=== PATIENT | female | born 1955 | race African-American/Black ===

== ENCOUNTER 2018-05-25 19:21 | Emergency (ER) | payer OTHER ==
[~2018-05-25] VITALS: Ht 170.2 cm; Wt 97.5 kg
[2018-05-25 20:04] LABS: Basophils # (auto) 0 uL; Basophils % (auto) 0.4 % (0.0-2.0); Eosinophils # (auto) 0.2 uL; Eosinophils % (auto) 2.8 % (0.0-7.0); Hematocrit 33.7 % (36.0-46.0); Lymphocytes # (auto) 1.9 uL; Mean Corpuscular Hgb Conc. 32.6 g/dL (32.0-36.0); Monocytes # (auto) 0.7 uL; Neutrophils # (auto) 4.9 uL; Neutrophils % (auto) 63.8 % (37.0-80.0); Nucleated Red Blood Cells % 0.5 %; Platelet Count (auto) 180 10^3/uL (140-450); Red Blood Cells 4.06 10^6/uL (4.0-5.20); Red Cell Distribution Width 16.4 % (11.8-14.3); White Blood Cell 7.7 10^3/uL (4.4-10.8)
[2018-05-25 20:14] LABS: Albumin 3.3 g/dL (3.4-5.0); Calcium 8.6 mg/dL (8.5-10.1); Magnesium 1.8 mg/dL (1.6-2.6); Potassium 3.5 mmol/L (3.5-5.1)
[2018-05-25 20:18] LABS: BUN/Creatinine Ratio 12.1; Bilirubin, Total 1.3 mg/dL (0.2-1.0); Total Protein 7.3 g/dL (6.4-8.2)
[2018-05-25] MEDS ORDERED: ALBUTEROL SULF 2.5 MG/0.5ML(0.5%) NEB SOLN NEB ONE (23:00)
[2018-05-25] MEDS ORDERED: IPRATROPIUM BROM 0.5 MG/2.5ML INH SOL NEB ONE (23:00)
[2018-05-25 23:18] LABS: INR 3.24 (0.9-1.15); Partial Thromboplastin Time 37.3 sec (23.78-33.04); Prothrombin Time 32.4 sec (9.27-12.13)
[2018-05-26 03:15] VITALS: BP 142/72
[2018-05-26] MEDS ORDERED: FUROSEMIDE 20 MG/2 ML VIAL IV ONE (03:45)
== END 2018-05-26 05:05 | disposition home or self-care (01) ==
LOC: EDBD 19:21 → ER 19:21
DX: I50.9 Heart failure, unspecified (principal); D68.9 Coagulation defect, unspecified; E11.9 Type 2 diabetes mellitus without complications; R53.1 Weakness; Z45.018 Encounter for adjustment and management of other part of cardiac pacemaker
CPT/HCPCS: 36415; 71046; 80053; 83735; 83880; 84484; 85025; 85379; 85610; 85730; 93005; 94640; 94761; 96374; 99284; J1940; J7611; J7644

== ENCOUNTER 2022-01-22 06:56 | Inpatient (IN) | payer MEDICARE, OTHER ==
[~2022-01-22] VITALS: Ht 170.2 cm; Wt 104.1 kg
[2022-01-22] VITALS (41 sets, daily range): BP systolic 77–150; BP diastolic 41–80
[2022-01-22] MEDS ORDERED: LORazepam 2MG/ML-1ML VIAL ONE (07:05)
[2022-01-22] MEDS ORDERED: LORazepam 2MG/ML-1ML VIAL IV ONE (07:06)
[2022-01-22] MEDS ORDERED: ETOMIDATE (2MG/ML) 20ML VIAL IV ONE ×2 (07:18→07:30)
[2022-01-22] MEDS ORDERED: SUCCINYLCHOLINE CHLORIDE 20 MG/ML 10ML VIAL IV ONE ×2 (07:19→07:30)
[2022-01-22] MEDS ORDERED: SODIUM CHLORIDE 0.9% 1,000 ML IV ONE ×2 (07:30)
[2022-01-22] MEDS ORDERED: cefTRIAXone 1GM/50ML D5W 50 ML IV ONE (07:30)
[2022-01-22] MEDS ORDERED: MIDAZOLAM DRIP 50 mg/50mL 50 ML IV ONE (07:37)
[2022-01-22] MEDS ORDERED: NOREPINEPHRINE 8 MG/250ML KIT 250 ML IV ONE (07:37)
[2022-01-22] MEDS: MIDAZOLAM DRIP 50 mg/50mL 50 ML IV SCH ×2 (07:42→10:00)
[2022-01-22] MEDS: NOREPINEPHRINE 8 MG/250ML KIT 250 ML IV SCH (08:00)
[2022-01-22 08:13] LABS: Basophils # (auto) 0.1 10 ^3/uL (0-0.2); Eosinophils # (auto) 0.2 10 ^3/uL (0-0.8); Lymphocytes # (auto) 1.5 10 ^3/uL (0.4-5.4); Monocytes # (auto) 0.4 10 ^3/uL (0-1.3); Neutrophils # (auto) 5.2 10 ^3/uL (1.6-8.6); Nucleated Red Blood Cells % 0.1 %
[2022-01-22 08:15] LABS: Basophils % (auto) 0.9 % (0.0-2.0); Hematocrit 37.7 % (36.0-46.0); Hemoglobin 12.6 g/dL (12.2-16.2); Lymphocytes % (auto) 20.1 % (10.0-50.0); Mean Corpuscular Hgb Conc. 33.5 g/dL (32.0-36.0); Mean Corpuscular Volume 80.7 fL (80.0-100.0); Monocytes % (auto) 5.6 % (0.0-12.0); Neutrophils % (auto) 70.4 % (37.0-80.0); Red Blood Cells 4.67 10^6/uL (4.0-5.20); Red Cell Distribution Width 14.7 % (11.8-14.3); White Blood Cell 7.3 10^3/uL (4.4-10.8)
[2022-01-22 08:36] LABS: INR 2.25 (0.9-1.15); Partial Thromboplastin Time 34.2 sec (24.6-33.4)
[2022-01-22 08:46] LABS: Albumin 3.4 g/dL (3.4-5.0); Calcium 9.6 mg/dL (8.5-10.1); Potassium 5.4 mmol/L (3.5-5.1)
[2022-01-22 08:49] LABS: BUN/Creatinine Ratio 10.7; Bilirubin, Total 0.6 mg/dL (0.2-1.0); Total Protein 6.7 g/dL (6.4-8.2)
[2022-01-22] MEDS: fentaNYL Drip 2500mCg/250mlNS 250 ML IV SCH (09:17)
[2022-01-22 10:24] LABS: Urine Bacteria FEW /hpf (None Seen); Urine Blood 3+ /uL (Negative); Urine Specific Gravity 1.014 (1.001-1.035); Urine WBC 2 /hpf (0 - 5)
[2022-01-22] MEDS ORDERED: NITROGLYCERIN 0.4 MG SL TAB SL PRN (10:30)
[2022-01-22] MEDS ORDERED: MORPHINE SULFATE INJ 2 MG/ml SYRG IV PRN (10:30)
[2022-01-22] MEDS ORDERED: DEXTROSE (50%) 50ML SYRG IV PRN (10:30)
[2022-01-22] MEDS ORDERED: InsuLIN REG 1unit/0.01ml Soln (100units/ml) IV ONE (11:15)
[2022-01-22] MEDS ORDERED: SODIUM BICARBONATE 8.4% INJ 50ML SYRINGE IV ONE (11:15)
[2022-01-22] MEDS ORDERED: DEXTROSE (50%) 50ML SYRG IV ONE (11:15)
[2022-01-22] MEDS ORDERED: FUROSEMIDE 20 MG/2 ML VIAL IV ONE (11:15)
[2022-01-22] MEDS ORDERED: SODIUM CHLORIDE 0.9% 1,000 ML IV SCH (11:30)
[2022-01-22 11:47] LABS: Cholesterol 122 mg/dL (< 200)
[2022-01-22 11:50] LABS: HDL Cholesterol 59 mg/dL (40-59); LDL Cholesterol 62 mg/dL (< 100); Triglycerides 63 mg/dL (< 150)
[2022-01-22] MEDS: ACCU-CHEK COMFORT CURVE STRIP VI SCH (12:00)
[2022-01-22] MEDS: InsuLIN REG 1unit/0.01ml Soln (100units/ml) SC SCH (12:00)
[2022-01-22 12:27] LABS: Lactic Acid w/Reflex 11.9 mmol/L (0.4-2.0)
[2022-01-22] MEDS ORDERED: PIPERACILLIN-TAZOB 3.375GM 100 ML IV ONE (12:30)
[2022-01-22 13:20] LABS: Amphetamine Screen, Urine NEGATIVE (NEGATIVE); Barbiturate Scree,Urine NEGATIVE (NEGATIVE); Benzodiazephine Screen, Urine POSITIVE (NEGATIVE); Cannabinoid Screen, Urine NEGATIVE (NEGATIVE); Cocaine Screen, Urine NEGATIVE (NEGATIVE); Opiate Scree,Urine NEGATIVE (NEGATIVE); Phencyclidine Screen, Urine NEGATIVE (NEGATIVE)
[2022-01-22 14:02] LABS: BUN/Creatinine Ratio 12.3; Calcium 8.8 mg/dL (8.5-10.1)
[2022-01-22] MEDS ORDERED: AMIODARONE 450mg/250ml AE 250 ML IV SCH (16:00)
[2022-01-22] MEDS ORDERED: AMIODARONE HCL 150 MG in D5W 5% 100 ML IV ONE (16:00)
[2022-01-22] MEDS ORDERED: WARFARIN SODIUM 5 MG TAB PO ONE (21:00)
[2022-01-22] MEDS: PIPERACILLIN-TAZOB 3.375GM 100 ML IV SCH ×2 (21:00→21:43)
[2022-01-22] MEDS ORDERED: PHENYTOIN IV DILANTIN 1,000 MG in SODIUM CHL 0.9% 250 ML IV ONE (21:00)
[2022-01-22] MEDS ORDERED: LORazepam 2MG/ML-1ML VIAL IV PRN (21:00)
[2022-01-22] MEDS: PHENYTOIN SODIUM 50 MG/ML 2ML VIAL IV SCH (22:00)
[2022-01-22] MEDS: MILRINONE 20MG/100ML 100 ML IV SCH (23:06)
[2022-01-23] VITALS (100 sets, daily range): BP systolic 84–127; BP diastolic 38–69
[2022-01-23 04:39] LABS: Basophils # (auto) 0.1 10 ^3/uL (0-0.2); Eosinophils # (auto) 0.1 10 ^3/uL (0-0.8); Lymphocytes # (auto) 1.9 10 ^3/uL (0.4-5.4); Monocytes # (auto) 1.2 10 ^3/uL (0-1.3); Nucleated Red Blood Cells % 0.3 %
[2022-01-23 04:43] LABS: Basophils % (auto) 0.7 % (0.0-2.0); Hematocrit 34.9 % (36.0-46.0); Lymphocytes % (auto) 16.6 % (10.0-50.0); Mean Corpuscular Hemoglobin 26.8 pg (28.0-32.0); Mean Corpuscular Hgb Conc. 34.5 g/dL (32.0-36.0); Mean Corpuscular Volume 77.8 fL (80.0-100.0); Monocytes % (auto) 9.8 % (0.0-12.0); Neutrophils # (auto) 8.4 10 ^3/uL (1.6-8.6); Neutrophils % (auto) 71.9 % (37.0-80.0); Red Blood Cells 4.48 10^6/uL (4.0-5.20); Red Cell Distribution Width 14.7 % (11.8-14.3); White Blood Cell 11.7 10^3/uL (4.4-10.8)
[2022-01-23 04:50] LABS: INR 2.49 (0.9-1.15)
[2022-01-23 04:58] LABS: Potassium 4.1 mmol/L (3.5-5.1)
[2022-01-23] MEDS: MIDAZOLAM DRIP 50 mg/50mL 50 ML IV SCH ×4 (05:00→16:45)
[2022-01-23] MEDS: PIPERACILLIN-TAZOB 3.375GM 100 ML IV SCH ×3 (05:00→22:14)
[2022-01-23] MEDS: MILRINONE 20MG/100ML 100 ML IV SCH ×4 (05:00→21:30)
[2022-01-23 05:05] LABS: Albumin 3.2 g/dL (3.4-5.0); BUN/Creatinine Ratio 12.3; Bilirubin, Total 1.2 mg/dL (0.2-1.0); Calcium 8.6 mg/dL (8.5-10.1); Total Protein 6.1 g/dL (6.4-8.2)
[2022-01-23] MEDS: ACCU-CHEK COMFORT CURVE STRIP VI SCH ×4 (06:00→18:29)
[2022-01-23] MEDS: InsuLIN REG 1unit/0.01ml Soln (100units/ml) SC SCH ×4 (06:00→18:00)
[2022-01-23] MEDS: PHENYTOIN SODIUM 50 MG/ML 2ML VIAL IV SCH ×3 (06:00→21:30)
[2022-01-23] MEDS: NOREPINEPHRINE 8 MG/250ML KIT 250 ML IV SCH ×2 (07:54→13:18)
[2022-01-23] MEDS: AMIODARONE 450mg/250ml AE 250 ML IV SCH ×2 (08:15→13:00)
[2022-01-23] MEDS ORDERED: ENOXAPARIN SOD 40 MG/0.4 ML SYRINGE SC SCH (10:00)
[2022-01-23] MEDS ORDERED: LIDOCAINE 1% (LOCAL ANESTH.) PF 5ml SDV ID ONE (13:00)
[2022-01-23] MEDS: fentaNYL Drip 2500mCg/250mlNS 250 ML IV SCH (13:19)
[2022-01-23] MEDS ORDERED: WARFARIN SODIUM 1 MG TAB PO ONE (17:00)
[2022-01-23] MEDS: SODIUM CHLOR 0.9% PF (SALINE LOCK) 10ML VIAL/SYR IV SCH (22:14)
[2022-01-24] VITALS (101 sets, daily range): BP systolic 81–127; BP diastolic 38–72
[2022-01-24] MEDS: InsuLIN REG 1unit/0.01ml Soln (100units/ml) SC SCH ×4 (01:30→18:04)
[2022-01-24] MEDS: ACCU-CHEK COMFORT CURVE STRIP VI SCH ×4 (01:30→17:52)
[2022-01-24] MEDS: MILRINONE 20MG/100ML 100 ML IV SCH ×4 (03:25→20:49)
[2022-01-24] MEDS: AMIODARONE 450mg/250ml AE 250 ML IV SCH (04:00)
[2022-01-24 04:27] LABS: Basophils # (auto) 0.1 10 ^3/uL (0-0.2); Basophils % (auto) 0.6 % (0.0-2.0); Eosinophils # (auto) 0 10 ^3/uL (0-0.8); Eosinophils % (auto) 0.2 % (0.0-7.0); Hematocrit 31.9 % (36.0-46.0); Hemoglobin 11.1 g/dL (12.2-16.2); Lymphocytes # (auto) 1.6 10 ^3/uL (0.4-5.4); Lymphocytes % (auto) 11.9 % (10.0-50.0); Mean Corpuscular Hemoglobin 27.4 pg (28.0-32.0); Mean Corpuscular Hgb Conc. 34.9 g/dL (32.0-36.0); Mean Corpuscular Volume 78.4 fL (80.0-100.0); Monocytes # (auto) 1.2 10 ^3/uL (0-1.3); Monocytes % (auto) 8.7 % (0.0-12.0); Neutrophils # (auto) 10.5 10 ^3/uL (1.6-8.6); Neutrophils % (auto) 78.6 % (37.0-80.0); Nucleated Red Blood Cells % 0.2 %; Red Blood Cells 4.07 10^6/uL (4.0-5.20); Red Cell Distribution Width 14.5 % (11.8-14.3); White Blood Cell 13.4 10^3/uL (4.4-10.8)
[2022-01-24 04:52] LABS: Albumin 2.8 g/dL (3.4-5.0); Calcium 8.3 mg/dL (8.5-10.1); Potassium 4.4 mmol/L (3.5-5.1)
[2022-01-24 04:55] LABS: BUN/Creatinine Ratio 11.2; Bilirubin, Total 0.9 mg/dL (0.2-1.0); Total Protein 5.6 g/dL (6.4-8.2)
[2022-01-24] MEDS: PHENYTOIN SODIUM 50 MG/ML 2ML VIAL IV SCH ×3 (06:04→22:19)
[2022-01-24 06:13] LABS: INR 5.53 (0.9-1.15)
[2022-01-24] MEDS: PIPERACILLIN-TAZOB 3.375GM 100 ML IV SCH ×3 (06:49→20:58)
[2022-01-24] MEDS: MIDAZOLAM DRIP 50 mg/50mL 50 ML IV SCH ×4 (08:57→20:50)
[2022-01-24] MEDS: NOREPINEPHRINE 8 MG/250ML KIT 250 ML IV SCH ×2 (08:58→15:48)
[2022-01-24] MEDS: fentaNYL Drip 2500mCg/250mlNS 250 ML IV SCH ×2 (09:15→13:39)
[2022-01-24] MEDS: SODIUM CHLOR 0.9% PF (SALINE LOCK) 10ML VIAL/SYR IV SCH ×2 (10:00→22:19)
[2022-01-24] MEDS ORDERED: PANTOPRAZOLE 40 MG/10 ML VIAL INJ IV ONE (10:30)
[2022-01-25] VITALS (100 sets, daily range): BP systolic 77–140; BP diastolic 35–65
[2022-01-25] MEDS: ACCU-CHEK COMFORT CURVE STRIP VI SCH ×5 (00:09→23:40)
[2022-01-25] MEDS: InsuLIN REG 1unit/0.01ml Soln (100units/ml) SC SCH ×5 (00:18→23:43)
[2022-01-25] MEDS: NOREPINEPHRINE 8 MG/250ML KIT 250 ML IV SCH ×2 (00:22→10:28)
[2022-01-25] MEDS: MIDAZOLAM DRIP 50 mg/50mL 50 ML IV SCH ×5 (00:23→21:04)
[2022-01-25 04:48] LABS: Basophils # (auto) 0.1 10 ^3/uL (0-0.2); Basophils % (auto) 0.6 % (0.0-2.0); Eosinophils # (auto) 0.1 10 ^3/uL (0-0.8); Eosinophils % (auto) 0.5 % (0.0-7.0); Hematocrit 30.6 % (36.0-46.0); Hemoglobin 10.6 g/dL (12.2-16.2); Lymphocytes # (auto) 1.4 10 ^3/uL (0.4-5.4); Lymphocytes % (auto) 10.4 % (10.0-50.0); Mean Corpuscular Hgb Conc. 34.7 g/dL (32.0-36.0); Mean Corpuscular Volume 77.8 fL (80.0-100.0); Monocytes # (auto) 1.2 10 ^3/uL (0-1.3); Monocytes % (auto) 8.7 % (0.0-12.0); Neutrophils # (auto) 10.7 10 ^3/uL (1.6-8.6); Neutrophils % (auto) 79.8 % (37.0-80.0); Nucleated Red Blood Cells % 0.1 %; Red Blood Cells 3.94 10^6/uL (4.0-5.20); Red Cell Distribution Width 14.5 % (11.8-14.3); White Blood Cell 13.4 10^3/uL (4.4-10.8)
[2022-01-25 04:59] LABS: Albumin 2.7 g/dL (3.4-5.0); Calcium 8.7 mg/dL (8.5-10.1); Potassium 4.2 mmol/L (3.5-5.1)
[2022-01-25 05:01] LABS: BUN/Creatinine Ratio 9.8
[2022-01-25 05:04] LABS: Bilirubin, Total 0.9 mg/dL (0.2-1.0); Total Protein 5.6 g/dL (6.4-8.2)
[2022-01-25 05:06] LABS: Partial Thromboplastin Time 55.8 sec (24.6-33.4)
[2022-01-25 05:10] LABS: INR 7.79 (0.9-1.15)
[2022-01-25] MEDS: AMIODARONE 450mg/250ml AE 250 ML IV SCH ×3 (05:19→20:05)
[2022-01-25] MEDS: MILRINONE 20MG/100ML 100 ML IV SCH ×3 (05:20→22:11)
[2022-01-25] MEDS: PIPERACILLIN-TAZOB 3.375GM 100 ML IV SCH ×3 (05:23→21:04)
[2022-01-25] MEDS: PHENYTOIN SODIUM 50 MG/ML 2ML VIAL IV SCH ×3 (06:09→22:11)
[2022-01-25] MEDS: PANTOPRAZOLE 40 MG/10 ML VIAL INJ IV SCH (10:26)
[2022-01-25] MEDS: SODIUM CHLOR 0.9% PF (SALINE LOCK) 10ML VIAL/SYR IV SCH ×2 (10:29→22:12)
[2022-01-26] VITALS (104 sets, daily range): BP systolic 87–141; BP diastolic 43–91
[2022-01-26] MEDS: MIDAZOLAM DRIP 50 mg/50mL 50 ML IV SCH ×4 (00:32→20:52)
[2022-01-26] MEDS: NOREPINEPHRINE 8 MG/250ML KIT 250 ML IV SCH (01:27)
[2022-01-26 03:34] LABS: Basophils # (auto) 0.1 10 ^3/uL (0-0.2); Basophils % (auto) 0.9 % (0.0-2.0); Eosinophils # (auto) 0.1 10 ^3/uL (0-0.8); Eosinophils % (auto) 1.4 % (0.0-7.0); Hematocrit 29.6 % (36.0-46.0); Hemoglobin 10.6 g/dL (12.2-16.2); Lymphocytes # (auto) 1.4 10 ^3/uL (0.4-5.4); Lymphocytes % (auto) 12.9 % (10.0-50.0); Mean Corpuscular Hemoglobin 27.9 pg (28.0-32.0); Mean Corpuscular Volume 77.5 fL (80.0-100.0); Monocytes # (auto) 1.1 10 ^3/uL (0-1.3); Monocytes % (auto) 9.9 % (0.0-12.0); Neutrophils % (auto) 74.9 % (37.0-80.0); Nucleated Red Blood Cells % 0.1 %; Red Blood Cells 3.82 10^6/uL (4.0-5.20); Red Cell Distribution Width 14.4 % (11.8-14.3); White Blood Cell 10.7 10^3/uL (4.4-10.8)
[2022-01-26 03:56] LABS: Albumin 2.5 g/dL (3.4-5.0); BUN/Creatinine Ratio 9.3; Calcium 8.8 mg/dL (8.5-10.1); Partial Thromboplastin Time 67.2 sec (24.6-33.4); Potassium 4.1 mmol/L (3.5-5.1)
[2022-01-26 03:59] LABS: Bilirubin, Total 0.7 mg/dL (0.2-1.0); Total Protein 6.1 g/dL (6.4-8.2)
[2022-01-26 04:21] LABS: INR > 8.0 (0.9-1.15)
[2022-01-26] MEDS: PIPERACILLIN-TAZOB 3.375GM 100 ML IV SCH ×3 (04:36→20:52)
[2022-01-26] MEDS: Glucerna 1.2 Cal 1Liter BOTTLE GT SCH ×2 (04:38→20:07)
[2022-01-26] MEDS: InsuLIN REG 1unit/0.01ml Soln (100units/ml) SC SCH ×3 (06:00→18:08)
[2022-01-26] MEDS: ACCU-CHEK COMFORT CURVE STRIP VI SCH ×3 (06:04→17:56)
[2022-01-26] MEDS: PHENYTOIN SODIUM 50 MG/ML 2ML VIAL IV SCH ×3 (06:04→22:24)
[2022-01-26] MEDS: MILRINONE 20MG/100ML 100 ML IV SCH ×3 (06:16→22:57)
[2022-01-26] MEDS: PANTOPRAZOLE 40 MG/10 ML VIAL INJ IV SCH (09:45)
[2022-01-26] MEDS: fentaNYL Drip 2500mCg/250mlNS 250 ML IV SCH ×2 (09:45→22:56)
[2022-01-26] MEDS: SODIUM CHLOR 0.9% PF (SALINE LOCK) 10ML VIAL/SYR IV SCH ×2 (09:45→22:24)
[2022-01-26] MEDS: AMIODARONE 450mg/250ml AE 250 ML IV SCH (09:46)
[2022-01-26] MEDS: PROPOFOL 100 ML IV SCH ×2 (11:00→20:03)
[2022-01-26] MEDS ORDERED: LACTULOSE 20Gm/30ML SOLN PO ONE (14:00)
[2022-01-26] MEDS ORDERED: PHYTONADIONE (VIT K)10 MG/ML 1ML VIAL SUBCUT ONE (14:00)
[2022-01-27] VITALS (106 sets, daily range): BP systolic 74–160; BP diastolic 35–75
[2022-01-27] MEDS: ACCU-CHEK COMFORT CURVE STRIP VI SCH ×5 (00:23→23:41)
[2022-01-27] MEDS: InsuLIN REG 1unit/0.01ml Soln (100units/ml) SC SCH ×5 (00:25→23:40)
[2022-01-27] MEDS: MIDAZOLAM DRIP 50 mg/50mL 50 ML IV SCH ×5 (00:29→20:48)
[2022-01-27] MEDS: AMIODARONE 450mg/250ml AE 250 ML IV SCH ×2 (02:00→17:19)
[2022-01-27] MEDS: NOREPINEPHRINE 8 MG/250ML KIT 250 ML IV SCH ×2 (03:37→14:28)
[2022-01-27 04:00] LABS: Basophils # (auto) 0.1 10 ^3/uL (0-0.2); Basophils % (auto) 0.7 % (0.0-2.0); Eosinophils # (auto) 0.5 10 ^3/uL (0-0.8); Eosinophils % (auto) 4.9 % (0.0-7.0); Hematocrit 30.5 % (36.0-46.0); Hemoglobin 10.7 g/dL (12.2-16.2); Lymphocytes # (auto) 1.4 10 ^3/uL (0.4-5.4); Mean Corpuscular Hemoglobin 27.6 pg (28.0-32.0); Mean Corpuscular Hgb Conc. 35.1 g/dL (32.0-36.0); Mean Corpuscular Volume 78.5 fL (80.0-100.0); Monocytes # (auto) 0.8 10 ^3/uL (0-1.3); Monocytes % (auto) 8.1 % (0.0-12.0); Neutrophils # (auto) 6.6 10 ^3/uL (1.6-8.6); Neutrophils % (auto) 71.3 % (37.0-80.0); Nucleated Red Blood Cells % 0.1 %; Red Blood Cells 3.88 10^6/uL (4.0-5.20); White Blood Cell 9.3 10^3/uL (4.4-10.8)
[2022-01-27 04:18] LABS: Albumin 2.4 g/dL (3.4-5.0); BUN/Creatinine Ratio 10.4; Calcium 9.3 mg/dL (8.5-10.1); Potassium 3.9 mmol/L (3.5-5.1)
[2022-01-27 04:21] LABS: Bilirubin, Total 0.5 mg/dL (0.2-1.0); Phosphorus 2.1 mg/dL (2.5-4.90); Total Protein 6.4 g/dL (6.4-8.2)
[2022-01-27] MEDS: PIPERACILLIN-TAZOB 3.375GM 100 ML IV SCH ×3 (05:00→20:48)
[2022-01-27] MEDS: PHENYTOIN SODIUM 50 MG/ML 2ML VIAL IV SCH ×3 (05:48→21:44)
[2022-01-27] MEDS: MILRINONE 20MG/100ML 100 ML IV SCH ×2 (06:45→15:46)
[2022-01-27] MEDS: PROPOFOL 100 ML IV SCH ×4 (08:15→23:00)
[2022-01-27 10:02] LABS: INR 3.32 (0.9-1.15); Partial Thromboplastin Time 55.2 sec (24.6-33.4)
[2022-01-27] MEDS: PANTOPRAZOLE 40 MG/10 ML VIAL INJ IV SCH (10:02)
[2022-01-27] MEDS: SODIUM CHLOR 0.9% PF (SALINE LOCK) 10ML VIAL/SYR IV SCH ×2 (10:02→21:44)
[2022-01-27] MEDS: fentaNYL Drip 2500mCg/250mlNS 250 ML IV SCH (11:31)
[2022-01-27] MEDS ORDERED: HEPARIN DRIP/D5W 100UNITS/ML 250 ML IV SCH (14:15)
[2022-01-28] VITALS (97 sets, daily range): BP systolic 92–134; BP diastolic 46–65
[2022-01-28] MEDS: MILRINONE 20MG/100ML 100 ML IV SCH ×5 (00:41→20:25)
[2022-01-28] MEDS: fentaNYL Drip 2500mCg/250mlNS 250 ML IV SCH ×2 (01:07→12:48)
[2022-01-28] MEDS: MIDAZOLAM DRIP 50 mg/50mL 50 ML IV SCH ×4 (01:07→20:14)
[2022-01-28 04:38] LABS: Basophils # (auto) 0 10 ^3/uL (0-0.2); Basophils % (auto) 0.7 % (0.0-2.0); Eosinophils # (auto) 0.5 10 ^3/uL (0-0.8); Eosinophils % (auto) 7.4 % (0.0-7.0); Hematocrit 30.3 % (36.0-46.0); Hemoglobin 10.4 g/dL (12.2-16.2); Lymphocytes # (auto) 1.1 10 ^3/uL (0.4-5.4); Lymphocytes % (auto) 16.7 % (10.0-50.0); Mean Corpuscular Hgb Conc. 34.5 g/dL (32.0-36.0); Mean Corpuscular Volume 78.3 fL (80.0-100.0); Monocytes # (auto) 0.6 10 ^3/uL (0-1.3); Monocytes % (auto) 9.4 % (0.0-12.0); Neutrophils # (auto) 4.4 10 ^3/uL (1.6-8.6); Neutrophils % (auto) 65.8 % (37.0-80.0); Nucleated Red Blood Cells % 0.1 %; Red Blood Cells 3.86 10^6/uL (4.0-5.20); Red Cell Distribution Width 14.8 % (11.8-14.3); White Blood Cell 6.7 10^3/uL (4.4-10.8)
[2022-01-28 04:55] LABS: INR 2.41 (0.9-1.15); Partial Thromboplastin Time 43.3 sec (24.6-33.4)
[2022-01-28 04:59] LABS: Calcium 8.7 mg/dL (8.5-10.1); Potassium 3.8 mmol/L (3.5-5.1)
[2022-01-28] MEDS: PIPERACILLIN-TAZOB 3.375GM 100 ML IV SCH ×3 (05:00→21:00)
[2022-01-28 05:02] LABS: BUN/Creatinine Ratio 12.6
[2022-01-28] MEDS: PHENYTOIN SODIUM 50 MG/ML 2ML VIAL IV SCH ×3 (05:31→21:33)
[2022-01-28] MEDS: InsuLIN REG 1unit/0.01ml Soln (100units/ml) SC SCH ×4 (05:31→23:34)
[2022-01-28] MEDS: ACCU-CHEK COMFORT CURVE STRIP VI SCH ×4 (05:31→23:35)
[2022-01-28] MEDS: AMIODARONE 450mg/250ml AE 250 ML IV SCH ×2 (08:00→13:00)
[2022-01-28] MEDS ORDERED: HEPARIN DRIP/D5W 100UNITS/ML 250 ML IV SCH (08:45)
[2022-01-28 09:55] LABS: INR 1.79 (0.9-1.15)
[2022-01-28] MEDS: PROPOFOL 100 ML IV SCH (10:07)
[2022-01-28] MEDS: SODIUM CHLOR 0.9% PF (SALINE LOCK) 10ML VIAL/SYR IV SCH ×2 (10:20→21:34)
[2022-01-28] MEDS: PANTOPRAZOLE 40 MG/10 ML VIAL INJ IV SCH (10:20)
[2022-01-28] MEDS ORDERED: AMIODARONE HCL 200 MG TAB PO ONE (14:30)
[2022-01-28] MEDS ORDERED: DOPamine 1600MCG/ML D5W 250 ML IV ONE (14:44)
[2022-01-28 15:33] LABS: INR 1.62 (0.9-1.15); Partial Thromboplastin Time 55.8 sec (24.6-33.4)
[2022-01-28] MEDS: HEPARIN DRIP/D5W 100UNITS/ML 250 ML IV SCH (21:30)
[2022-01-28] MEDS: AMIODARONE HCL 200 MG TAB PO SCH (21:39)
[2022-01-28 21:49] LABS: INR 1.56 (0.9-1.15); Partial Thromboplastin Time 52.1 sec (24.6-33.4)
[2022-01-29] VITALS (103 sets, daily range): BP systolic 95–137; BP diastolic 43–66
[2022-01-29] MEDS: MILRINONE 20MG/100ML 100 ML IV SCH ×5 (00:26→19:01)
[2022-01-29] MEDS: PROPOFOL 100 ML IV SCH ×2 (01:30→11:00)
[2022-01-29] MEDS: fentaNYL Drip 2500mCg/250mlNS 250 ML IV SCH ×3 (02:10→22:39)
[2022-01-29 03:42] LABS: Basophils # (auto) 0 10 ^3/uL (0-0.2); Basophils % (auto) 0.6 % (0.0-2.0); Eosinophils # (auto) 0.5 10 ^3/uL (0-0.8); Eosinophils % (auto) 6.6 % (0.0-7.0); Hematocrit 30.9 % (36.0-46.0); Hemoglobin 10.5 g/dL (12.2-16.2); Lymphocytes # (auto) 1.6 10 ^3/uL (0.4-5.4); Lymphocytes % (auto) 20.2 % (10.0-50.0); Mean Corpuscular Hgb Conc. 34.1 g/dL (32.0-36.0); Monocytes # (auto) 0.9 10 ^3/uL (0-1.3); Monocytes % (auto) 12.1 % (0.0-12.0); Neutrophils # (auto) 4.7 10 ^3/uL (1.6-8.6); Neutrophils % (auto) 60.5 % (37.0-80.0); Nucleated Red Blood Cells % 0.1 %; Red Blood Cells 3.91 10^6/uL (4.0-5.20); Red Cell Distribution Width 14.8 % (11.8-14.3); White Blood Cell 7.7 10^3/uL (4.4-10.8)
[2022-01-29 04:02] LABS: BUN/Creatinine Ratio 10.9; Calcium 9.4 mg/dL (8.5-10.1); INR 1.46 (0.9-1.15); Partial Thromboplastin Time 57.8 sec (24.6-33.4); Potassium 4.2 mmol/L (3.5-5.1)
[2022-01-29] MEDS: PIPERACILLIN-TAZOB 3.375GM 100 ML IV SCH ×3 (05:00→20:54)
[2022-01-29] MEDS: NOREPINEPHRINE 8 MG/250ML KIT 250 ML IV SCH ×2 (05:13→07:45)
[2022-01-29] MEDS: MIDAZOLAM DRIP 50 mg/50mL 50 ML IV SCH ×2 (05:15→19:45)
[2022-01-29] MEDS: PHENYTOIN SODIUM 50 MG/ML 2ML VIAL IV SCH ×3 (05:33→21:34)
[2022-01-29] MEDS: InsuLIN REG 1unit/0.01ml Soln (100units/ml) SC SCH ×4 (05:34→23:39)
[2022-01-29] MEDS: ACCU-CHEK COMFORT CURVE STRIP VI SCH ×3 (05:37→17:55)
[2022-01-29] MEDS: PANTOPRAZOLE 40 MG/10 ML VIAL INJ IV SCH (09:21)
[2022-01-29] MEDS: AMIODARONE HCL 200 MG TAB PO SCH ×2 (09:26→21:34)
[2022-01-29] MEDS: SODIUM CHLOR 0.9% PF (SALINE LOCK) 10ML VIAL/SYR IV SCH ×2 (09:34→21:34)
[2022-01-29 09:58] LABS: % Iron Saturation 29.1 % (15-50)
[2022-01-29] MEDS ORDERED: FUROSEMIDE 20 MG/2 ML VIAL IV ONE (18:00)
[2022-01-29] MEDS: HEPARIN DRIP/D5W 100UNITS/ML 250 ML IV SCH (21:30)
[2022-01-30] VITALS (104 sets, daily range): BP systolic 85–147; BP diastolic 41–69
[2022-01-30] MEDS: MILRINONE 20MG/100ML 100 ML IV SCH ×5 (00:33→16:36)
[2022-01-30 04:29] LABS: Basophils # (auto) 0.1 10 ^3/uL (0-0.2); Basophils % (auto) 0.7 % (0.0-2.0); Eosinophils # (auto) 0.4 10 ^3/uL (0-0.8); Lymphocytes # (auto) 1.4 10 ^3/uL (0.4-5.4); Nucleated Red Blood Cells % 0.1 %
[2022-01-30 04:35] LABS: Eosinophils % (auto) 5.1 % (0.0-7.0); Hematocrit 31.3 % (36.0-46.0); Hemoglobin 10.6 g/dL (12.2-16.2); Lymphocytes % (auto) 17.9 % (10.0-50.0); Mean Corpuscular Hemoglobin 26.7 pg (28.0-32.0); Mean Corpuscular Hgb Conc. 33.9 g/dL (32.0-36.0); Mean Corpuscular Volume 78.8 fL (80.0-100.0); Monocytes # (auto) 0.8 10 ^3/uL (0-1.3); Monocytes % (auto) 10.2 % (0.0-12.0); Neutrophils # (auto) 5.1 10 ^3/uL (1.6-8.6); Neutrophils % (auto) 66.1 % (37.0-80.0); Red Blood Cells 3.97 10^6/uL (4.0-5.20); Red Cell Distribution Width 14.7 % (11.8-14.3); White Blood Cell 7.7 10^3/uL (4.4-10.8)
[2022-01-30 04:45] LABS: Albumin 2.4 g/dL (3.4-5.0); Calcium 9.5 mg/dL (8.5-10.1); INR 1.18 (0.9-1.15); Partial Thromboplastin Time 42.4 sec (24.6-33.4); Potassium 4.5 mmol/L (3.5-5.1)
[2022-01-30 04:47] LABS: BUN/Creatinine Ratio 17.3
[2022-01-30] MEDS: PIPERACILLIN-TAZOB 3.375GM 100 ML IV SCH (04:53)
[2022-01-30] MEDS: NOREPINEPHRINE 8 MG/250ML KIT 250 ML IV SCH ×2 (04:54→07:45)
[2022-01-30] MEDS: PHENYTOIN SODIUM 50 MG/ML 2ML VIAL IV SCH ×3 (05:40→22:18)
[2022-01-30] MEDS: ACCU-CHEK COMFORT CURVE STRIP VI SCH ×4 (05:40→18:20)
[2022-01-30] MEDS: InsuLIN REG 1unit/0.01ml Soln (100units/ml) SC SCH ×3 (05:40→18:22)
[2022-01-30] MEDS: MIDAZOLAM DRIP 50 mg/50mL 50 ML IV SCH ×2 (05:45→15:45)
[2022-01-30] MEDS ORDERED: HEPARIN DRIP/D5W 100UNITS/ML 250 ML IV SCH (08:30)
[2022-01-30] MEDS ORDERED: PHENYTOIN IV DILANTIN 400 MG in SODIUM CHL 0.9% 100 ML IV ONE (09:00)
[2022-01-30] MEDS: fentaNYL Drip 2500mCg/250mlNS 250 ML IV SCH (09:12)
[2022-01-30] MEDS ORDERED: VANCOMYCIN PER PHARMACY 0 MG IV SCH (09:15)
[2022-01-30] MEDS: AMIODARONE HCL 200 MG TAB PO SCH ×2 (10:00→22:19)
[2022-01-30] MEDS: SODIUM CHLOR 0.9% PF (SALINE LOCK) 10ML VIAL/SYR IV SCH ×2 (10:43→22:16)
[2022-01-30] MEDS: VANCOMYCIN 1GM/250ML 250 ML IV SCH ×2 (10:43→21:06)
[2022-01-30] MEDS: PANTOPRAZOLE 40 MG/10 ML VIAL INJ IV SCH (10:43)
[2022-01-30] MEDS: PROPOFOL 100 ML IV SCH (10:44)
[2022-01-30 12:23] LABS: INR 1.15 (0.9-1.15)
[2022-01-30] MEDS: HEPARIN DRIP/D5W 100UNITS/ML 250 ML IV SCH (13:15)
[2022-01-30 20:47] LABS: INR 1.12 (0.9-1.15); Partial Thromboplastin Time 49.8 sec (24.6-33.4)
[2022-01-31] VITALS (76 sets, daily range): BP systolic 101–186; BP diastolic 46–99
[2022-01-31] MEDS: InsuLIN REG 1unit/0.01ml Soln (100units/ml) SC SCH ×4 (00:11→18:24)
[2022-01-31] MEDS: ACCU-CHEK COMFORT CURVE STRIP VI SCH ×4 (00:12→18:19)
[2022-01-31] MEDS: MILRINONE 20MG/100ML 100 ML IV SCH ×2 (00:35→08:00)
[2022-01-31] MEDS: MIDAZOLAM DRIP 50 mg/50mL 50 ML IV SCH ×2 (01:45→11:45)
[2022-01-31 02:36] LABS: Basophils # (auto) 0.1 10 ^3/uL (0-0.2); Basophils % (auto) 0.7 % (0.0-2.0); Eosinophils # (auto) 0.1 10 ^3/uL (0-0.8); Eosinophils % (auto) 0.7 % (0.0-7.0); Hematocrit 29.3 % (36.0-46.0); Hemoglobin 10.1 g/dL (12.2-16.2); Lymphocytes # (auto) 1.2 10 ^3/uL (0.4-5.4); Lymphocytes % (auto) 14.8 % (10.0-50.0); Mean Corpuscular Hemoglobin 27.2 pg (28.0-32.0); Mean Corpuscular Hgb Conc. 34.5 g/dL (32.0-36.0); Mean Corpuscular Volume 78.8 fL (80.0-100.0); Monocytes # (auto) 0.9 10 ^3/uL (0-1.3); Monocytes % (auto) 10.3 % (0.0-12.0); Neutrophils # (auto) 6.1 10 ^3/uL (1.6-8.6); Neutrophils % (auto) 73.5 % (37.0-80.0); Nucleated Red Blood Cells % 0.1 %; Red Blood Cells 3.71 10^6/uL (4.0-5.20); White Blood Cell 8.3 10^3/uL (4.4-10.8)
[2022-01-31 02:53] LABS: INR 1.13 (0.9-1.15); Partial Thromboplastin Time 54.4 sec (24.6-33.4)
[2022-01-31 02:56] LABS: Albumin 2.6 g/dL (3.4-5.0); BUN/Creatinine Ratio 14.5; Calcium 9.5 mg/dL (8.5-10.1); Phosphorus 2.4 mg/dL (2.5-4.90); Potassium 4.4 mmol/L (3.5-5.1)
[2022-01-31 04:18] LABS: Urine Bacteria NONE SEEN /hpf (None Seen); Urine Blood 3+ /uL (Negative); Urine Mucus FEW (None Seen); Urine Specific Gravity 1.023 (1.001-1.035); Urine WBC 34 /hpf (0 - 5); Urine WBC Clumps PRESENT /hpf (None Seen)
[2022-01-31] MEDS: PHENYTOIN SODIUM 50 MG/ML 2ML VIAL IV SCH ×3 (05:27→22:25)
[2022-01-31] MEDS: HEPARIN DRIP/D5W 100UNITS/ML 250 ML IV SCH (05:32)
[2022-01-31] MEDS: VANCOMYCIN 1GM/250ML 250 ML IV SCH (05:40)
[2022-01-31] MEDS: NOREPINEPHRINE 8 MG/250ML KIT 250 ML IV SCH (07:45)
[2022-01-31 08:41] LABS: INR 1.07 (0.9-1.15); Partial Thromboplastin Time 35.8 sec (24.6-33.4)
[2022-01-31] MEDS: fentaNYL Drip 2500mCg/250mlNS 250 ML IV SCH (09:15)
[2022-01-31] MEDS: AMIODARONE HCL 200 MG TAB PO SCH ×2 (10:00→22:27)
[2022-01-31] MEDS: PANTOPRAZOLE 40 MG/10 ML VIAL INJ IV SCH (10:24)
[2022-01-31] MEDS: SODIUM CHLOR 0.9% PF (SALINE LOCK) 10ML VIAL/SYR IV SCH ×2 (10:24→22:25)
[2022-01-31] MEDS: PROPOFOL 100 ML IV SCH (11:00)
[2022-01-31] MEDS ORDERED: EPINEPHrine HCL 0.5 ML NEB ONE (12:14)
[2022-01-31] MEDS ORDERED: EPINEPHrine HCL 0.5 ML NEB NEB ONE (12:15)
[2022-01-31] MEDS ORDERED: MIDAZOLAM DRIP 50 mg/50mL 50 ML IV SCH (13:00)
[2022-01-31] MEDS ORDERED: fentaNYL Drip 2500mCg/250mlNS 250 ML IV SCH (13:00)
[2022-01-31] MEDS ORDERED: hydrALAZINE HCL 20 MG/ML VL IV PRN (16:00)
[2022-01-31] MEDS ORDERED: WARFARIN SODIUM 2 MG TAB PO ONE (17:00)
[2022-01-31] MEDS: FUROSEMIDE 20 MG/2 ML VIAL IV SCH (18:19)
[2022-01-31] MEDS ORDERED: VANCOMYCIN 1GM/250ML 250 ML IV SCH (22:00)
[2022-01-31] MEDS: SACUBITRIL-VALSARTAN 24mg/26mg TAB PO SCH (22:00)
[2022-01-31] MEDS: CARVEDILOL 3.125 MG TAB PO SCH (22:36)
[2022-02-01] VITALS (24 sets, daily range): BP systolic 118–147; BP diastolic 43–81
[2022-02-01] MEDS: ACCU-CHEK COMFORT CURVE STRIP VI SCH ×5 (00:17→23:44)
[2022-02-01] MEDS: InsuLIN REG 1unit/0.01ml Soln (100units/ml) SC SCH ×5 (00:19→23:44)
[2022-02-01 05:16] LABS: BUN/Creatinine Ratio 12.8; Calcium 9.8 mg/dL (8.5-10.1)
[2022-02-01] MEDS: PHENYTOIN SODIUM 50 MG/ML 2ML VIAL IV SCH ×3 (05:55→21:47)
[2022-02-01] MEDS: FUROSEMIDE 20 MG/2 ML VIAL IV SCH (05:56)
[2022-02-01] MEDS: AMIODARONE HCL 200 MG TAB PO SCH ×2 (09:16→22:00)
[2022-02-01] MEDS: SODIUM CHLOR 0.9% PF (SALINE LOCK) 10ML VIAL/SYR IV SCH ×2 (09:16→22:24)
[2022-02-01] MEDS: SACUBITRIL-VALSARTAN 24mg/26mg TAB PO SCH ×3 (09:22→21:47)
[2022-02-01 09:25] LABS: Basophils # (auto) 0.1 10 ^3/uL (0-0.2); Basophils % (auto) 0.7 % (0.0-2.0); Eosinophils # (auto) 0.1 10 ^3/uL (0-0.8); Nucleated Red Blood Cells % 0.1 %
[2022-02-01 09:27] LABS: Eosinophils % (auto) 1.1 % (0.0-7.0); Hematocrit 34.7 % (36.0-46.0); Hemoglobin 11.8 g/dL (12.2-16.2); Lymphocytes # (auto) 1.3 10 ^3/uL (0.4-5.4); Lymphocytes % (auto) 14.6 % (10.0-50.0); Mean Corpuscular Volume 79.4 fL (80.0-100.0); Monocytes # (auto) 1.3 10 ^3/uL (0-1.3); Monocytes % (auto) 15.1 % (0.0-12.0); Neutrophils # (auto) 5.9 10 ^3/uL (1.6-8.6); Neutrophils % (auto) 68.5 % (37.0-80.0); Red Blood Cells 4.37 10^6/uL (4.0-5.20); Red Cell Distribution Width 14.7 % (11.8-14.3); White Blood Cell 8.6 10^3/uL (4.4-10.8)
[2022-02-01] MEDS: PANTOPRAZOLE 40 MG/10 ML VIAL INJ IV SCH (09:28)
[2022-02-01] MEDS: CARVEDILOL 3.125 MG TAB PO SCH ×2 (09:29→22:38)
[2022-02-01 09:44] LABS: INR 1.11 (0.9-1.15)
[2022-02-01] MEDS: VANCOMYCIN 1GM/250ML 250 ML IV SCH ×2 (11:46→23:57)
[2022-02-01] MEDS ORDERED: cefTRIAXone 1GM/50ML D5W 50 ML IV ONE (14:30)
[2022-02-01] MEDS ORDERED: WARFARIN SODIUM 2 MG TAB PO ONE (17:00)
[2022-02-01] MEDS ORDERED: FURO20TA3 PO (18:15)
[2022-02-01] MEDS ORDERED: WARF5TAB71 PO (18:15)
[2022-02-01] MEDS ORDERED: DULO20CA PO (18:15)
[2022-02-01] MEDS ORDERED: SACU1TAB PO (18:15)
[2022-02-01] MEDS ORDERED: ATOR20TA PO (18:15)
[2022-02-01] MEDS ORDERED: SPIR25TA8 PO (18:15)
[2022-02-01] MEDS ORDERED: CHOL20007 PO (18:15)
[2022-02-01] MEDS ORDERED: WARF2.5T39 PO (18:15)
[2022-02-01] MEDS ORDERED: DAPA1TAB4 PO (18:15)
[2022-02-01] MEDS ORDERED: FOLI1TAB6 PO (18:15)
[2022-02-01] MEDS ORDERED: ASPI-543 PO (18:15)
[2022-02-01] MEDS ORDERED: FLUT50SP (18:15)
[2022-02-01] MEDS ORDERED: LIRA18IN2 SUBCUT (18:15)
[2022-02-01] MEDS ORDERED: CARV25TA55 PO (18:15)
[2022-02-02] VITALS (22 sets, daily range): BP systolic 132–178; BP diastolic 58–109
[2022-02-02] MEDS ORDERED: diphenhdrAMINE HCL 50 MG/1 ML VL IV ONE (01:00)
[2022-02-02] MEDS ORDERED: diphenhdrAMINE HCL 50 MG/1 ML VL ONE (01:03)
[2022-02-02 04:03] LABS: Basophils # (auto) 0.1 10 ^3/uL (0-0.2); Basophils % (auto) 0.6 % (0.0-2.0); Eosinophils # (auto) 0.1 10 ^3/uL (0-0.8); Eosinophils % (auto) 1.3 % (0.0-7.0); Lymphocytes # (auto) 1.6 10 ^3/uL (0.4-5.4); Lymphocytes % (auto) 18.8 % (10.0-50.0); Mean Corpuscular Hemoglobin 27.4 pg (28.0-32.0); Mean Corpuscular Hgb Conc. 34.1 g/dL (32.0-36.0); Mean Corpuscular Volume 80.2 fL (80.0-100.0); Monocytes # (auto) 1.4 10 ^3/uL (0-1.3); Monocytes % (auto) 16.4 % (0.0-12.0); Neutrophils # (auto) 5.4 10 ^3/uL (1.6-8.6); Neutrophils % (auto) 62.9 % (37.0-80.0); Red Blood Cells 4.37 10^6/uL (4.0-5.20); Red Cell Distribution Width 14.8 % (11.8-14.3); White Blood Cell 8.6 10^3/uL (4.4-10.8)
[2022-02-02 04:16] LABS: Albumin 2.9 g/dL (3.4-5.0); Calcium 10.2 mg/dL (8.5-10.1); Potassium 3.7 mmol/L (3.5-5.1)
[2022-02-02 04:17] LABS: INR 1.13 (0.9-1.15); Partial Thromboplastin Time 25.9 sec (24.6-33.4)
[2022-02-02 04:21] LABS: BUN/Creatinine Ratio 15.8; Bilirubin, Total 0.6 mg/dL (0.2-1.0); Total Protein 6.9 g/dL (6.4-8.2)
[2022-02-02] MEDS: PHENYTOIN SODIUM 50 MG/ML 2ML VIAL IV SCH ×3 (06:11→21:59)
[2022-02-02] MEDS: ACCU-CHEK COMFORT CURVE STRIP VI SCH ×3 (06:11→16:55)
[2022-02-02] MEDS: InsuLIN REG 1unit/0.01ml Soln (100units/ml) SC SCH ×3 (06:12→17:23)
[2022-02-02] MEDS: SODIUM CHLOR 0.9% PF (SALINE LOCK) 10ML VIAL/SYR IV SCH ×2 (07:20→21:59)
[2022-02-02] MEDS: cefTRIAXone 1GM/50ML D5W 50 ML IV SCH (08:25)
[2022-02-02] MEDS: PANTOPRAZOLE 40 MG/10 ML VIAL INJ IV SCH (08:25)
[2022-02-02] MEDS: POTASSIUM EFFERVESENT TAB 25 MEQ PO SCH (08:26)
[2022-02-02] MEDS: SACUBITRIL-VALSARTAN 24mg/26mg TAB PO SCH ×2 (08:26→21:59)
[2022-02-02] MEDS: AMIODARONE HCL 200 MG TAB PO SCH ×2 (08:26→22:00)
[2022-02-02] MEDS: CARVEDILOL 3.125 MG TAB PO SCH ×2 (08:27→22:00)
[2022-02-02] MEDS: FUROSEMIDE 40 MG TAB PO SCH (08:28)
[2022-02-02] MEDS: HALOPERIDOL LACTATE 5 MG/ML INJ VIAL IM PRN ×2 (11:03→20:52)
[2022-02-02] MEDS: VANCOMYCIN 1GM/250ML 250 ML IV SCH ×2 (11:40→21:59)
[2022-02-02 12:40] LABS: Urine Bacteria FEW /hpf (None Seen); Urine Blood 3+ /uL (Negative); Urine Specific Gravity 1.011 (1.001-1.035); Urine WBC 27 /hpf (0 - 5)
[2022-02-02 12:51] LABS: Protein, Urine 73.4 mg/dL (0.0-11.9)
[2022-02-02] MEDS ORDERED: WARFARIN SODIUM 2 MG TAB PO ONE (17:00)
[2022-02-03] VITALS (23 sets, daily range): BP systolic 97–165; BP diastolic 49–85
[2022-02-03] MEDS: ACCU-CHEK COMFORT CURVE STRIP VI SCH ×5 (00:06→23:46)
[2022-02-03] MEDS: InsuLIN REG 1unit/0.01ml Soln (100units/ml) SC SCH ×5 (00:09→23:49)
[2022-02-03 05:23] LABS: Basophils # (auto) 0.1 10 ^3/uL (0-0.2); Basophils % (auto) 1.1 % (0.0-2.0); Eosinophils # (auto) 0.1 10 ^3/uL (0-0.8); Eosinophils % (auto) 1.3 % (0.0-7.0); Hemoglobin 12.6 g/dL (12.2-16.2); Lymphocytes # (auto) 1.8 10 ^3/uL (0.4-5.4); Mean Corpuscular Hemoglobin 27.3 pg (28.0-32.0); Mean Corpuscular Hgb Conc. 34.9 g/dL (32.0-36.0); Mean Corpuscular Volume 78.3 fL (80.0-100.0); Monocytes # (auto) 1.3 10 ^3/uL (0-1.3); Monocytes % (auto) 14.8 % (0.0-12.0); Neutrophils # (auto) 5.6 10 ^3/uL (1.6-8.6); Neutrophils % (auto) 62.8 % (37.0-80.0); Nucleated Red Blood Cells % 0.2 %; Red Cell Distribution Width 14.7 % (11.8-14.3); White Blood Cell 8.9 10^3/uL (4.4-10.8)
[2022-02-03 05:38] LABS: INR 1.15 (0.9-1.15); Partial Thromboplastin Time 25.9 sec (24.6-33.4)
[2022-02-03 05:49] LABS: Potassium 3.3 mmol/L (3.5-5.1)
[2022-02-03 06:01] LABS: BUN/Creatinine Ratio 17.8; Bilirubin, Total 0.6 mg/dL (0.2-1.0); Calcium 10.4 mg/dL (8.5-10.1); Magnesium 1.9 mg/dL (1.6-2.6); Phosphorus 2.4 mg/dL (2.5-4.90); Total Protein 6.7 g/dL (6.4-8.2)
[2022-02-03] MEDS: PHENYTOIN SODIUM 50 MG/ML 2ML VIAL IV SCH ×3 (06:15→22:48)
[2022-02-03] MEDS: HALOPERIDOL LACTATE 5 MG/ML INJ VIAL IM PRN (07:16)
[2022-02-03] MEDS: SODIUM CHLOR 0.9% PF (SALINE LOCK) 10ML VIAL/SYR IV SCH ×2 (07:17→22:48)
[2022-02-03] MEDS ORDERED: POTASSIUM PHOSPHATE 26.4 MEQ in SODIUM CHL 0.9% 100 ML IV ONE (08:00)
[2022-02-03] MEDS: cefTRIAXone 1GM/50ML D5W 50 ML IV SCH (08:17)
[2022-02-03] MEDS: SACUBITRIL-VALSARTAN 24mg/26mg TAB PO SCH ×2 (09:09→22:00)
[2022-02-03] MEDS: VANCOMYCIN 1GM/250ML 250 ML IV SCH (09:09)
[2022-02-03] MEDS: PANTOPRAZOLE 40 MG/10 ML VIAL INJ IV SCH (09:09)
[2022-02-03] MEDS: AMIODARONE HCL 200 MG TAB PO SCH ×2 (09:09→22:47)
[2022-02-03] MEDS: FUROSEMIDE 40 MG TAB PO SCH (09:09)
[2022-02-03] MEDS: POTASSIUM EFFERVESENT TAB 25 MEQ PO SCH (09:09)
[2022-02-03] MEDS: CARVEDILOL 3.125 MG TAB PO SCH ×2 (09:27→22:00)
[2022-02-03] MEDS ORDERED: WARFARIN SODIUM 2 MG TAB PO ONE (17:00)
[2022-02-04] VITALS (8 sets, daily range): BP systolic 91–128; BP diastolic 35–60
[2022-02-04 04:12] LABS: BUN/Creatinine Ratio 17.5; Calcium 9.7 mg/dL (8.5-10.1); Magnesium 1.8 mg/dL (1.6-2.6); Potassium 3.4 mmol/L (3.5-5.1)
[2022-02-04 04:26] LABS: INR 1.2 (0.9-1.15); Partial Thromboplastin Time 28.5 sec (24.6-33.4)
[2022-02-04] MEDS ORDERED: VANCOMYCIN 1GM/250ML 250 ML IV SCH (05:00)
[2022-02-04] MEDS: ACCU-CHEK COMFORT CURVE STRIP VI SCH ×4 (05:34→23:58)
[2022-02-04] MEDS: InsuLIN REG 1unit/0.01ml Soln (100units/ml) SC SCH ×3 (05:34→18:16)
[2022-02-04] MEDS: PHENYTOIN SODIUM 50 MG/ML 2ML VIAL IV SCH (06:00)
[2022-02-04] MEDS ORDERED: LORazepam 2MG/ML-1ML VIAL IV PRN ×2 (09:45→10:00)
[2022-02-04] MEDS: SACUBITRIL-VALSARTAN 24mg/26mg TAB PO SCH ×2 (10:00→22:00)
[2022-02-04] MEDS: CARVEDILOL 3.125 MG TAB PO SCH ×2 (10:00→22:03)
[2022-02-04] MEDS: POTASSIUM EFFERVESENT TAB 25 MEQ PO SCH (10:29)
[2022-02-04] MEDS: PANTOPRAZOLE 40 MG/10 ML VIAL INJ IV SCH (10:29)
[2022-02-04] MEDS: AMIODARONE HCL 200 MG TAB PO SCH ×2 (10:29→22:04)
[2022-02-04] MEDS: SODIUM CHLOR 0.9% PF (SALINE LOCK) 10ML VIAL/SYR IV SCH ×2 (10:30→22:03)
[2022-02-04] MEDS: FUROSEMIDE 40 MG TAB PO SCH (10:30)
[2022-02-04] MEDS ORDERED: POTASSIUM EFFERVESENT TAB 25 MEQ PO ONE (12:30)
[2022-02-04] MEDS ORDERED: WARFARIN SODIUM 2 MG TAB PO ONE (17:00)
[2022-02-04] MEDS: PHENYTOIN SODIUM 100 MG CAP PO SCH (22:08)
[2022-02-05] VITALS (7 sets, daily range): BP systolic 95–110; BP diastolic 41–74
[2022-02-05] MEDS: InsuLIN REG 1unit/0.01ml Soln (100units/ml) SC SCH ×4 (00:17→18:07)
[2022-02-05 04:19] LABS: INR 1.22 (0.9-1.15)
[2022-02-05 04:32] LABS: BUN/Creatinine Ratio 14.7; Calcium 9.6 mg/dL (8.5-10.1); Potassium 3.7 mmol/L (3.5-5.1)
[2022-02-05] MEDS: ACCU-CHEK COMFORT CURVE STRIP VI SCH ×3 (06:12→17:58)
[2022-02-05] MEDS: SACUBITRIL-VALSARTAN 24mg/26mg TAB PO SCH (10:00)
[2022-02-05] MEDS: POTASSIUM EFFERVESENT TAB 25 MEQ PO SCH (10:18)
[2022-02-05] MEDS: PANTOPRAZOLE 40 MG TAB PO SCH (10:18)
[2022-02-05] MEDS: FUROSEMIDE 40 MG TAB PO SCH (10:19)
[2022-02-05] MEDS: SODIUM CHLOR 0.9% PF (SALINE LOCK) 10ML VIAL/SYR IV SCH ×2 (10:19→22:21)
[2022-02-05] MEDS: AMIODARONE HCL 200 MG TAB PO SCH ×2 (10:19→22:20)
[2022-02-05] MEDS: CARVEDILOL 3.125 MG TAB PO SCH ×2 (10:19→22:00)
[2022-02-05] MEDS ORDERED: WARFARIN SODIUM 2 MG TAB PO ONE (17:00)
[2022-02-05] MEDS: PHENYTOIN SODIUM 100 MG CAP PO SCH (22:20)
[2022-02-06] VITALS: BP 98/54
[2022-02-06] MEDS: ACCU-CHEK COMFORT CURVE STRIP VI SCH ×4 (00:20→17:32)
[2022-02-06] MEDS: InsuLIN REG 1unit/0.01ml Soln (100units/ml) SC SCH ×4 (00:29→18:07)
[2022-02-06 04:00] VITALS: BP 101/55
[2022-02-06 07:35] LABS: INR 1.29 (0.9-1.15); Partial Thromboplastin Time 27.3 sec (24.6-33.4)
[2022-02-06 07:40] LABS: BUN/Creatinine Ratio 14.8; Calcium 9.4 mg/dL (8.5-10.1); Potassium 3.8 mmol/L (3.5-5.1)
[2022-02-06 08:00] VITALS: BP 106/62
[2022-02-06] MEDS: PANTOPRAZOLE 40 MG TAB PO SCH (09:03)
[2022-02-06] MEDS: AMIODARONE HCL 200 MG TAB PO SCH ×2 (09:03→22:39)
[2022-02-06] MEDS: SODIUM CHLOR 0.9% PF (SALINE LOCK) 10ML VIAL/SYR IV SCH ×2 (09:04→22:00)
[2022-02-06] MEDS: CARVEDILOL 3.125 MG TAB PO SCH (09:09)
[2022-02-06 12:00] VITALS: BP 103/58
[2022-02-06 16:00] VITALS: BP 102/61
[2022-02-06] MEDS ORDERED: WARFARIN SODIUM 5 MG TAB PO ONE (17:00)
[2022-02-06] MEDS ORDERED: traMADol HCL 50 MG TAB PO PRN (17:15)
[2022-02-06] MEDS: PHENYTOIN SODIUM 100 MG CAP PO SCH (22:39)
[2022-02-07] MEDS: ACCU-CHEK COMFORT CURVE STRIP VI SCH ×4 (00:05→17:58)
[2022-02-07] MEDS: CARVEDILOL 3.125 MG TAB PO SCH ×2 (00:05→10:37)
[2022-02-07] MEDS: InsuLIN REG 1unit/0.01ml Soln (100units/ml) SC SCH ×4 (06:00→18:10)
[2022-02-07 06:21] LABS: INR 1.39 (0.9-1.15)
[2022-02-07 08:52] VITALS: BP 108/56
[2022-02-07] MEDS: SODIUM CHLOR 0.9% PF (SALINE LOCK) 10ML VIAL/SYR IV SCH (10:11)
[2022-02-07] MEDS: AMIODARONE HCL 200 MG TAB PO SCH (10:38)
[2022-02-07] MEDS: PANTOPRAZOLE 40 MG TAB PO SCH (10:39)
[2022-02-07] MEDS ORDERED: MORPHINE SULFATE INJ 2 MG/ml SYRG IV ONE (11:00)
[2022-02-07 12:48] VITALS: BP 107/61
[2022-02-07] MEDS ORDERED: WARFARIN SODIUM 5 MG TAB PO ONE (17:00)
[2022-02-07 18:59] VITALS: BP 109/77
== END 2022-02-07 19:03 | disposition short-term general hospital (02) | DRG 870 ==
LOC: EDBD 06:56 → EDUNIT# 06:56 → ER 06:56 → TELE 11:08 → ICU WEST 12:30 → TELE-WESTW 02-07 08:25
PROVIDERS: ADMIT Registered Nurse; ATTEND Nurse Practitioner Acute Care
PROC: 5A1955Z Respiratory Ventilation, Greater than 96 Consecutive Hours (ICD-10-PCS; principal; 2022-01-22)
PROC: 0BH17EZ Insertion of Endotracheal Airway into Trachea, Via Natural or Artificial Opening (ICD-10-PCS; 2022-01-22)
PROC: 02HV33Z Insertion of Infusion Device into Superior Vena Cava, Percutaneous Approach (ICD-10-PCS; 2022-01-23)
PROC: B548ZZA Ultrasonography of Superior Vena Cava, Guidance (ICD-10-PCS; 2022-01-23)
DX: A41.9 Sepsis, unspecified organism (principal); J96.01 Acute respiratory failure with hypoxia; G93.41 Metabolic encephalopathy; I50.43 Acute on chronic combined systolic (congestive) and diastolic (congestive) heart failure; N17.0 Acute kidney failure with tubular necrosis; J69.0 Pneumonitis due to inhalation of food and vomit; R57.0 Cardiogenic shock; R65.21 Severe sepsis with septic shock; J96.02 Acute respiratory failure with hypercapnia; I13.0 Hypertensive heart and chronic kidney disease with heart failure and stage 1 through stage 4 chronic kidney disease, or unspecified chronic kidney disease; E87.21 Acute metabolic acidosis; E44.0 Moderate protein-calorie malnutrition; I47.20 Ventricular tachycardia, unspecified; N30.00 Acute cystitis without hematuria; J91.8 Pleural effusion in other conditions classified elsewhere; Z20.822 Contact with and (suspected) exposure to COVID-19; E78.5 Hyperlipidemia, unspecified; N18.9 Chronic kidney disease, unspecified; E66.01 Morbid (severe) obesity due to excess calories; E87.5 Hyperkalemia; E11.22 Type 2 diabetes mellitus with diabetic chronic kidney disease; I27.20 Pulmonary hypertension, unspecified; I48.91 Unspecified atrial fibrillation; G40.901 Epilepsy, unspecified, not intractable, with status epilepticus; Z88.8 Allergy status to other drugs, medicaments and biological substances; Z68.35 Body mass index [BMI] 35.0-35.9, adult; Z79.82 Long term (current) use of aspirin; Z79.01 Long term (current) use of anticoagulants; Z79.84 Long term (current) use of oral hypoglycemic drugs; Z79.899 Other long term (current) drug therapy; Z86.73 Personal history of transient ischemic attack (TIA), and cerebral infarction without residual deficits; Z95.3 Presence of xenogenic heart valve; Z95.810 Presence of automatic (implantable) cardiac defibrillator
CPT/HCPCS: 31500; 36415; 36556; 36569; 36600; 70450; 71045; 76604; 80048; 80053; 80061; 80069; 80185; 80202; 80307; 81001; 82040; 82570; 82728; 82805; 82962; 83036; 83540; 83550; 83605; 83735; 83880; 84100; 84132; 84156; 84300; 84443; 84484; 85025; 85610; 85730; 87040; 87070; 87077; 87081; 87086; 87186; 87205; 87426; 92610; 93005; 93306; 93886; 94002; 94003; 95819; 96365; 96375; 97110; 97116; 97163; 97530; 99291; C9113; G0378; J0330; J0696; J1815; J2250; J2543; J2704; J3430; J7060